=== PATIENT | female | born 1945 | race Caucasian/White ===

== ENCOUNTER 2018-06-14 08:52 | Inpatient (IN) ==
--- NOTE | 2018-05-27 15:08 | PAT Medication Instructions ---
Medication Instructions Date of Service May 27, 2018 Home Medications allopurinol [Zyloprim] 100 mg PO QAM aspirin [Aspir-81] 81 mg PO QAM hydrochlorothiazide 25 mg PO QAM levothyroxine 175 mcg PO QAM lisinopril 2.5 mg PO QAM multivitamin 1 cap PO QAM nifedipine 90 mg PO QAM omega 2-rov-pvf-fish oil [Fish Oil] 1 cap PO QAM ranitidine HCl 150 mg PO QAM STOP taking 2 weeks before surgery (or as soon as possible if surgery is within 2 weeks) omega 5-gkv-dcx-fish oil [Fish Oil] 1 cap PO QAM DO NOT take the morning of surgery hydrochlorothiazide 25 mg PO QAM lisinopril 2.5 mg PO QAM multivitamin 1 cap PO QAM ranitidine HCl 150 mg PO QAM Take morning of surgery With a small sip of water, OTHERWISE NOTHING TO EAT OR DRINK AFTER MIDNIGHT: allopurinol [Zyloprim] 100 mg PO QAM aspirin [Aspir-81] 81 mg PO QAM levothyroxine 175 mcg PO QAM nifedipine 90 mg PO QAM Other Notes If you have any questions please call us at [phone] or [phone] or [phone] or [phone]
--- NOTE | 2018-05-28 11:23 | Anesthesiology Consultation ---
Date of Service May 28, 2018 Assessment & Plan (1) Encounter for pre-operative examination: Chart Review Chart Review: Acceptable Risk for Surgery and Patient seen in Pre Admission Testing Teaching & Discussion Pre-Anesthesia Teaching/Discussion Notes: Instructed NPO after midnight before surgery,except medications with 15 cc of water. Medication instructions provided according to the PAT guidelines. History Surgery Operation Date: 06/14/18 11:05 Proposed Procedures p L4-L5 Decompression and Fusion; L2-L3 Left Discectomy, Possible Coflex - Jose Luis Tello DO Height/Weight Height: 5 ft 4 in Weight: 92.3 kg Allergies Allergy/AdvReac Type Severity Reaction Status Date / Time No Known Allergies Allergy Verified 05/22/18 09:09 Medications Home Medications Medication Instructions Recorded Confirmed Last Taken allopurinol [Zyloprim] 100 mg PO QAM 05/22/18 05/22/18 Unknown aspirin [Aspir-81] 81 mg PO QAM 05/22/18 05/22/18 Unknown hydrochlorothiazide 25 mg PO QAM 05/22/18 05/22/18 Unknown levothyroxine 175 mcg PO QAM 05/22/18 05/22/18 Unknown lisinopril 2.5 mg PO QAM 05/22/18 05/22/18 Unknown multivitamin 1 cap PO QAM 05/22/18 05/22/18 Unknown nifedipine 90 mg PO QAM 05/22/18 05/22/18 Unknown omega 5-atn-kuy-fish oil [Fish Oil] 1 cap PO QAM 05/22/18 05/22/18 Unknown ranitidine HCl 150 mg PO QAM 05/22/18 05/22/18 Unknown Past Medical History Medical History Aortic valve sclerosis Chronic back pain LLE RADICULOPATHY/NEUROPATHY Degenerative disc disease GERD (gastroesophageal reflux disease) CONTROLLED Hypertension Hypothyroidism Obesity Past Surgical History Surgical History History of bilateral tubal ligation History of colonoscopy History of gastric bypass 2006 History of oral surgery Past Anesthesia History No Hx of Anesthesia Complications and No Family Hx of Anesthesia Complications Social History Smoking Status: Current every day smoker tobacco type: cigarettes Smoking cigarettes per day: <1/2 PPD X 30 YEARS Do You Dip or Chew Tobacco: No Hx Alcohol Use: No Alcohol Intake Frequency Comment: 0 Hx Substance Use: No substance use type: does not use Exercise / Class Metabolic Activity III < 4 Walking/Shop/Light housework Review of Systems Patient denies chest pain, shortness of breath, cough, wheezing, palpitations. Physical Exam Vital Signs VITALS BP 125/84 P 83 TEMP 98.0 SP02 95%RA RESP 20 PHYSICAL Full neck and c-spine range of motion. Full TMJ range of motion. TMD 2.5 finger breaths Mallampati Score 3 Dentition: full dentures upper/lower; edentulous Lungs: clear throughout to auscultation Cardiac: regular rate and rhythm, III/ systolic murmur Spine: normal Carotid arteries: negative bruit Extremities: no edema Testing Electrocardiogram Date: 05/28/18 NSR at 76bpm. NS STA. Chest X-Ray Date: 05/28/18 Findings: + NAD Echocardiogram Date: 10/06/16 LVEF 65%. No RWMA. AV sclerosis otherwise no significant valvular disease (ECHO done for murmur evaluation; per ECHO report: "heart murmur may be due to aortic valve sclerosis") Laboratory Results 05/28/18 11:41 Blood Type A Positive 05/28/18 11:41 Antibody Screen NEGATIVE 05/28/18 11:41 PT 10.0 Seconds (9.0-12.0) 05/28/18 11:41 INR 1.0 (0.9-1.1) 05/28/18 11:41 APTT 29.6 Seconds (21.0-31.0) 05/28/18 11:41 Urine Color Dark Yellow 05/28/18 Unknown Urine Appearance Clear (Clear) 05/28/18 Unknown Urine pH 5.0 (4.5-7.5) 05/28/18 Unknown Ur Specific [place] 1.032 (1.000-1.030) H 05/28/18 Unknown Urine Protein Negative (Negative) 05/28/18 Unknown Urine Glucose (UA) Negative (Negative) 05/28/18 Unknown Urine Ketones Trace (Negative) H 05/28/18 Unknown Urine Nitrite Positive (Negative) H 05/28/18 Unknown Ur Leukocyte Esterase Negative (Negative) 05/28/18 Unknown Urine WBC (Auto) 5-10 /hpf (0-5) H 05/28/18 Unknown Urine RBC (Auto) 0-4 /hpf (0-4) 05/28/18 Unknown U Hyaline Cast (Auto) 0 /lpf (0-5) 05/28/18 Unknown U Epithel Cells (Auto) >30 /lpf (0-5) H 05/28/18 Unknown Urine Bacteria (Auto) 1+ (Negative) H 05/28/18 Unknown Surgeon made aware of positive UA/elevated WBC 05/10/18 SODIUM 142 POTASSIUM 4.1 CHLORIDE 102 CO2 28 BUN 14 CREATININE 0.6 GLUCOSE 118
--- NOTE | 2018-05-28 12:05 | XRay Report ---
XR chest Pre-admission PA/Lat CLINICAL HISTORY: pat preoperative evaluation COMPARISON STUDY: No previous studies for comparison. FINDINGS: The bones soft tissues and hemidiaphragms are normal. The cardiomediastinal silhouette is n ormal. The lungs are clear. The pulmonary vasculature is normal. IMPRESSION: Negative chest. The above report was generated using voice recognition software. It may contain grammatical, syntax or spelling errors. Electronically signed by: Williams Menon M.D. 05/28/2018 12:04 PM
[2018-05-28 12:47] LABS: Basophils # (auto) 0.13 K/uL (0-0.2); Eosinophils # (auto) 0.24 K/uL (0-0.5); Eosinophils % (auto) 1.9 %; Hematocrit (blood only) 43.3 % (37-47); Hemoglobin 14.9 g/dL (12.0-16.0); Immature Granulocytes # (auto) 0.04 K/uL (0.00-0.02); Immature Granulocytes % (auto) 0.3 %; Lymphocytes # (auto) 2.97 K/uL (1.2-3.4); Lymphocytes % (auto) 23.9 %; Mean Corpuscular Hgb Conc 34.4 g/dL (32-36); Mean Corpuscular Volume 89.8 fL (80-100); Mean Platelet Volume 9.5 fL (7.4-10.4); Neutrophils # (auto) 8.05 K/uL (1.4-6.5); Neutrophils % (auto) 64.9 %; Platelet Count 415 K/uL (130-400); RDW Coefficient of Variation 13.6 % (11.5-14.5); RDW Standard Deviation 44.6 fL (36.4-46.3); Red Blood Count 4.82 M/uL (4.2-5.4); White Blood Count 12.43 K/uL (4.8-10.8)
[2018-05-28 13:05] LABS: Partial Thromboplastin Ratio 1.1; Partial Thromboplastin Time 29.6 Seconds (21.0-31.0)
[2018-05-28 13:10] LABS: Appearance Urine Clear (Clear); Bacteria Urine Automated 1+ (Negative); Blood Urine Negative (Negative); Cast Urine Automated 0 /lpf (0-5); Color Urine Dark Yellow; Epithelial Cell Urine Auto >30 /lpf (0-5); Glucose Urine UA Negative (Negative); Ketones Urine Trace (Negative); Leukocyte Esterase Urine Negative (Negative); Nitrite Urine Positive (Negative); Protein Urine Negative (Negative); RBC Urine Automated 0-4 /hpf (0-4); Specific Gravity Urine 1.032 (1.000-1.030); Urobilinogen Urine Negative (Negative)
[2018-05-28 13:52] LABS: Bilirubin Urine Negative (Negative); Ictotest Urine Negative (Negative)
[2018-05-28 14:00] LABS: Calcium Oxalate Crystals Urine Present (None Prsent)
[~2018-06-14 08:52] MED LIST: ACETAMINOPHEN 500 MG TAB PO SCH; CEFAZOLIN 2000MG 2,000 MG/15 ML SYR IV SCH; CeleBREX 200 MG CAP PO SCH; DEXAMETHASONE SOD INJ 4 MG/ML VIAL ONE; GABAPENTIN 300 MG PO SCH; GLYCOPYRROLATE 0.2 MG/ML VIAL ONE; HYDROmorphone INJ 2 MG/ML SYR/VIAL ONE; LIDOCAINE HCL 2% 2 ML VIAL/AMP(20MG/ML) INFIL ONE; LR 15ML/HR IV SCH; MIDAZOLAM HCL 1 MG/ML 2ML VIAL ONE; NEOSTIGMINE METHYLSULFATE 1 MG/ML 10ML VIAL ONE; ONDANSETRON INJ 2 MG/ML 2 ML VIAL ONE; PROPOFOL IV EMULSION 10 MG/ML 20 ML VIAL IV ONE; ROCURONIUM BROMIDE 10 MG/ML 5 ML VIAL ONE; fentaNYL citrate 100 MCG/2 ML VIAL ONE
--- NOTE | 2018-06-14 10:27 | History & Physical Bridge Note ---
Date of Service June 14, 2018 History & Physical Bridge Note I have examined the patient, reviewed the History & Physical and in the interval since the performance of the History & Physical I have noted the following changes of clinical significance: no changes noted
--- NOTE | 2018-06-14 10:28 | History & Physical Report ---
Date of Service June 14, 2018 Assessment & Plan (1) Neurogenic claudication due to lumbar spinal stenosis: L4-5 decompression and fusion L2-3 discectomy with possible Coflex Present on Admission?: Yes History of Present Illness Chief Complaint: Back and leg pain Primary Care Provider: Adolfo Tamez This is a 73-year-old female that presents with chronic persistent back pain. After failing extensive course of nonoperative care she is here for surgical intervention. Allergies Allergy/AdvReac Type Severity Reaction Status Date / Time No Known Allergies Allergy Verified 06/14/18 09:17 Home Medications Home Medications Medication Instructions Recorded Confirmed Type aspirin [Aspir-81] 81 mg PO QAM 05/22/18 06/14/18 History hydrochlorothiazide 25 mg PO QAM 05/22/18 06/14/18 History levothyroxine 175 mcg PO QAM 05/22/18 06/14/18 History lisinopril 2.5 mg PO QAM 05/22/18 06/14/18 History multivitamin 1 cap PO QAM 05/22/18 06/14/18 History nifedipine 90 mg PO QAM 05/22/18 06/14/18 History omega 7-pdf-olc-fish oil [Fish Oil] 1 cap PO QAM 05/22/18 06/14/18 History ranitidine HCl 150 mg PO QAM 05/22/18 06/14/18 History Past Med/Surg History Medical History Aortic valve sclerosis Chronic back pain LLE RADICULOPATHY/NEUROPATHY Degenerative disc disease GERD (gastroesophageal reflux disease) CONTROLLED Hypertension Hypothyroidism Obesity Surgical History History of bilateral tubal ligation History of colonoscopy History of gastric bypass 2007 History of oral surgery Social History Preferred Language: [place] Communication Ability: Effective Bead Picker Required: No Beliefs That Will Affect Care: None Current Living Situation: Family Other Information That Helps Us Care for You: No Feels Safe at Home: Yes Safety Concerns: Feels Safe At This Time Smoking Status: Current every day smoker Hx Alcohol Use: No Hx Substance Use: No Physical Exam Vital Signs (Past 24 Hours): Last Vital Signs Temp 36.9 C 06/14/18 09:35 Pulse 74 06/14/18 09:35 Resp 20 06/14/18 09:35 BP 151/85 H 06/14/18 09:35 Pulse Ox 96 06/14/18 09:35 Results & Data Medications Administered Acetaminophen (Tylenol) 1,000 mg PO PREOP CRISTINA Stop: 06/14/18 18:00 Last Admin: 06/14/18 09:52 Dose: 1,000 mg Documented by: [id number] Celecoxib (Celebrex) 200 mg PO PREOP CRISTINA Stop: 06/14/18 18:00 Last Admin: 06/14/18 09:52 Dose: 200 mg Documented by: [id number] Gabapentin (Neurontin) 300 mg PO PREOP CRISTINA Stop: 06/14/18 18:00 Last Admin: 06/14/18 09:52 Dose: 300 mg Documented by: [id number] Lactated Ringer's (Lr) 1,000 mls @ 15 mls/hr IV .Q24H [facility] Stop: 06/15/18 05:59 Last Admin: 06/14/18 09:37 Dose: 15 mls/hr Documented by: [id number]
[2018-06-14] MEDS ORDERED: ePHEDrine sulfate 50 MG/ML AMP IV PRN (10:35)
[2018-06-14] MEDS ORDERED: fentaNYL citrate 100 MCG/2 ML VIAL IV PRN (10:35)
[2018-06-14] MEDS ORDERED: ATROPINE SULFATE 0.1 MG/ML 10ML SYR IV PRN (10:35)
[2018-06-14] MEDS ORDERED: ONDANSETRON INJ 2 MG/ML 2 ML VIAL IV PRN ×2 (10:35→15:15)
[2018-06-14] MEDS ORDERED: HYDROmorphone INJ 1 MG/ML SYRINGE IV PRN ×2 (10:35→15:15)
[2018-06-14] MEDS ORDERED: ALBUT/IPRATROP 3MG/0.5MG NEB 3 ML VIAL INH PRN (10:44)
[2018-06-14] MEDS ORDERED: BUPIVACAINE/EPINEPHRINE 0.5% MPF 1:200,000 30 ML VIAL ONE (10:44)
[2018-06-14] MEDS ORDERED: BACITRACIN INJ 50,000 UNIT VIAL ONE (10:44)
[2018-06-14] MEDS ORDERED: ALBUT/IPRATROP 3MG/0.5MG NEB 3 ML VIAL NEB STA (10:44)
[2018-06-14] MEDS ORDERED: fentaNYL citrate 100 MCG/2 ML VIAL ONE ×3 (11:27→13:01)
[2018-06-14] MEDS ORDERED: FLOSEAL HEMOSTATIC MATRIX 10ML TOP ONE (11:37)
[2018-06-14] MEDS ORDERED: ePHEDrine sulfate 50 MG/ML SYR ONE (13:02)
[2018-06-14] MEDS ORDERED: KETOROLAC 30 MG/ML VIAL ONE (13:02)
[2018-06-14] MEDS ORDERED: ALBUTEROL HFA INHALER 8.5 GM ONE (13:02)
[2018-06-14] MEDS ORDERED: PHENYLEPHRINE 100MCG/ML 5ML SYR ONE (13:02)
[2018-06-14] MEDS ORDERED: HYDROmorphone INJ 2 MG/ML SYR/VIAL ONE (13:02)
--- NOTE | 2018-06-14 13:06 | Operative Report ---
Post Operative Report Pre & Post Diagnosis Operation Date: 06/14/18 11:05 Pre-Op Diagnosis: Lumbar spinal stenosis with neurogenic claudication and herniated was pulposis L2-3 Post-Op Diagnosis: Same Procedure Operation Date: 06/14/18 11:05 Actual Procedures #1 lumbar decompression medial facetectomies foraminotomies L2-3 L3-4 L4-5. #2 posterior spinal fusion L2-3 L3-4 L4-5 per #3 placement posterior instrumentation L4-5 per #4 interbody fusion L4-5 per #5 placement of titanium 10 x 22 mm cage L4-5 #6 placement of local autograft in the posterior gutters per #7 placement infuse collagen sponge combined with master graft in the posterior lateral gutters and ostial amp and interbody space. Surgeon Jose Luis Tello, Talend Etl Developer Jose Juan Madison Estimated Blood Loss 200 Findings Consistent with Post-Op Diagnosis Specimens None Description of Procedure Patient was met with preoperatively case discussed all questions addressed. After informed consent obtained patient was taken to the operative suite underwent intubation and placed in a prone position on the Zain table on top of the Brayan frame. All bony prominences padded eyes inspected to ensure no external pressure placed upon. This point the lumbar spine is prepped and draped in a sterile fashion. Sharp dissection with the assistance pericardial form down to and exposing the lamina of L2 and L3-L4 and the transverse processes of L4-5 bilaterally. I then proceeded with an complete laminectomy of L4 partial laminectomy L3 including bilateral medial facetectomies foraminoto mies to address severe stenosis. Pedicle screws were then placed in L4-L5 bilaterally with assistance of fluoroscopy the purposes kenia placed by way of a transforaminal approach and left complete discectomy was performed in plate coated to subcortical bleeding bone and a 10 x 22 mm titanium cage filled some and tapped in position. Then proceeded to 3 level in performed a midline decompression however to adequately decompress the exiting to an traversing III nerve root I performed a medial facetectomy and foraminotomies taking significant portion of the facet joint rendering it unstable. Subsequent elected to expose the transverse processes of a 2 and 3 and extend the in situ fusion to L2-3 L3-4 bilaterally. I did also perform small discectomy to 3 and removing the herniated fragment on the left. After this complete infuse collagen sponge and cement were placed in the posterior gutters L2-L5 including local autograft. 15 round JACKIE drain inserted. Incision was then closed with 1 Vicryl in the fascia 2-0 Vicryl subcutaneously Monocryl for final skin closure. Steri-Strip sterile dressings placed. Patient will continue to PACU stable condition. Please note my coworker present at the entire procedure involved in patient positioning complex portions of the surgery and final skin closure. I attest to the content of the Intraoperative Record and any orders documented therein. Any exceptions are noted below.
--- NOTE | 2018-06-14 13:46 | Fluoroscopy Report ---
INTRAOPERATIVE RADIOGRAPHS CLINICAL HISTORY: L4-L5 spinal fusion. Fluoroscopy time: 22 seconds. FINDINGS: 2 spot fluoroscopic views of the lumbar spine are presented. There has been discectomy at L 4-L5 with laminectomy and posterior fusion at this level. Interpedicular screws are seen at both leve ls. The orthopedic hardware appears intact. IMPRESSION: Intraoperative images from L4 -L5 spinal fusion as above. Electronically signed by: Chente Moss M.D. 06/14/2018 1:44 PM
--- NOTE | 2018-06-14 14:16 | Anesthesiology Progress Note ---
Date of Service June 14, 2018 Anesthesia Post Procedure Vital Signs Vital Signs: Temp Pulse Pulse Pulse Resp BP BP 06/14/18 14:03 70 17 06/14/18 14:01 69 22 132/62 06/14/18 14:00 78 21 06/14/18 13:56 66 21 131/66 06/14/18 13:55 65 20 06/14/18 13:51 68 24 130/71 06/14/18 13:50 64 20 06/14/18 13:47 64 18 06/14/18 13:46 69 20 118/72 06/14/18 13:45 77 18 06/14/18 13:41 75 17 122/63 06/14/18 13:40 71 20 06/14/18 13:36 77 24 130/68 06/14/18 13:35 77 16 06/14/18 13:31 82 17 137/69 06/14/18 13:30 76 15 06/14/18 13:28 36.3 C L 76 76 20 132/66 132/66 06/14/18 10:53 79 16 06/14/18 09:35 36.9 C 74 20 151/85 H Pulse Ox 06/14/18 14:03 99 06/14/18 14:01 98 06/14/18 14:00 98 06/14/18 13:56 96 06/14/18 13:55 95 06/14/18 13:51 98 06/14/18 13:50 98 06/14/18 13:47 99 06/14/18 13:46 100 06/14/18 13:45 100 06/14/18 13:41 99 06/14/18 13:40 98 06/14/18 13:36 98 06/14/18 13:35 98 06/14/18 13:31 95 06/14/18 13:30 95 06/14/18 13:28 94 06/14/18 10:53 95 06/14/18 09:35 96 Pain Intensity Lower Back: Pain Intensity: 5 Back: Pain Intensity: 0 Notes Mental Status: alert / awake / arousable and participated in evaluation Patient Amnestic to Procedure: Yes Nausea / Vomiting: adequately controlled Pain: adequately controlled Airway Patency, RR, SpO2: stable & adequate BP & HR: stable & adequate Hydration State: stable & adequate Anesthetic Complications: no major complications apparent and Pt Satisfied with anesthetic care Notes: Patient was wheezing prior to going to the OR. Given duoneb with mild improvement. Albuterol given via ETT intraop for continued wheezing. Treated again in PACU with duoneb for wheezing with mild improvement, but continued audible wheezing even after treatment. Suspect this is chronic for the patient. Vital signs are stable and oxygen saturation consistently 96 to 100% on 4 lpm NC. Ok to discharge to the floor. Medicine consult in place to evaluate whether patient needs longitudinal optimization of suspected COPD due to history of smoking.
[2018-06-14] MEDS ORDERED: TRAMADOL HCL 50 MG TABLET PO PRN (15:15)
[2018-06-14] MEDS ORDERED: ALUMINUM/MAGNESIUM SUSP 30 ML UDC PO PRN (15:15)
[2018-06-14] MEDS ORDERED: ACETAMINOPHEN 500 MG TAB PO PRN (15:15)
[2018-06-14] MEDS ORDERED: ONDANSETRON 4 MG TAB PO PRN (15:15)
[2018-06-14] MEDS ORDERED: FAMOTIDINE 20 MG TAB PO PRN (15:15)
[2018-06-14] MEDS ORDERED: DO NOT ADMINISTER PNEUMOCOCCAL VACCINE PRN (15:15)
[2018-06-14] MEDS ORDERED: SOD PHOSPHATE/SOD BIPHOSPHATE ENEMA 132 ML BTL PR PRN (15:15)
[2018-06-14] MEDS ORDERED: METOCLOPRAMIDE HCL INJ 5 MG/ML 2 ML VIAL IV PRN (15:15)
[2018-06-14] MEDS ORDERED: PROMETHAZINE HCL 12.5 MG in SODIUM CHLORIDE 0.9% 50 ML IV PRN (15:15)
[2018-06-14] MEDS ORDERED: MAGNESIUM HYDROXIDE SUSP 30 ML UDC PO PRN (15:15)
[2018-06-14] MEDS ORDERED: BISACODYL 10 MG SUPP PR PRN (15:15)
[2018-06-14] MEDS ORDERED: LORazepam 0.5 MG/1 ML VIAL IV PRN (15:15)
[2018-06-14] MEDS ORDERED: ACETAMINOPHEN 1,000 MG/100 ML VIAL IV PRN (15:15)
[2018-06-14] MEDS ORDERED: DO NOT ADMINISTER FLU VACCINE PRN (15:15)
[2018-06-14] MEDS ORDERED: LORazepam 0.5 MG TAB PO PRN (15:15)
[2018-06-14] MEDS ORDERED: NICOTINE 14 MG/24 HR PATCH TD PRN (18:06)
--- NOTE | 2018-06-14 18:06 | Hospitalist Consultation ---
Date of Consultation June 14, 2018 Assessment & Plan (1) Neurogenic claudication due to lumbar spinal stenosis: - POD#0 L4-5 decompression fusion, L2-[address] Tello - activity and wound care orders as per ortho - pain control with bowel regimen - PT/OT - monitor H/H for acute blood loss anemia and transfuse blood products PRN - EBL 200 cc (2) Hypertension: -BP controlled, continue hydrochlorothiazide and lisinopril (3) Hypothyroidism: -Continue levothyroxine (4) Dyslipidemia: -Continue statin (5) Tobacco use: -Patient counseled regarding tobacco cessation -Nicotine patch ordered (6) DVT prophylaxis: -Teds/SCDs as per spine ortho Thank you for this consultation. We will follow the patient with you during their hospital stay. You can reach a [facility] via pager @ [phone]. Supervising Physician Co-Signing Physician Notes HISTORY: Record reviewed. Patient interviewed and examined. Care coordinated with Corinna Grayson PA-C. Please refer to her documentation for patient's history. Doing well postoperatively. No chest pain, cough, SOB, nausea, vomiting. Pain well-controlled. EXAM: General- no distress Lungs- clear to auscultation; no respiratory distress Cardiovascular- RRR; II/ sys murmur at base; no gallop; no JVD; no pretibial edema Abdomen- + bowel sounds, soft, nontender Extremities- no cyanosis; no calf tenderness Neuro- alert, oriented Skin- warm & dry ASSESSMENT AND PLAN: Doing well postoperatively. Continue usual BP meds. VTE prophylaxis per Ortho protocol. Please refer to JONATHAN Salinas's documentation for discussion of other issues. History of Present Illness Reason for Consultation: Postop medical management Requesting Physician: Dr. Tello Attending Physician: Dr. Felipe History of Present Illness 73-year-old female who is status post L4-L5 decompression and fusion, L2-L3 discectomy today by Dr. Tello. Postoperatively, the patient is doing well. She is currently reporting minimal pain. She denies any numbness or tingling to her lower extremities. No chest pain or shortness of breath. She denies lightheadedness and dizziness. No abdominal pain or nausea. Mccarthy catheter is in place draining clear yellow urine. Allergies Allergy/AdvReac Type Severity Reaction Status Date / Time No Known Allergies Allergy Verified 06/14/18 09:17 Home Medications Home Medications Medication Instructions Recorded Confirmed Type aspirin [Aspir-81] 81 mg PO QAM 05/22/18 06/14/18 History hydrochlorothiazide 25 mg PO QAM 05/22/18 06/14/18 History levothyroxine 175 mcg PO QAM 05/22/18 06/14/18 History lisinopril 2.5 mg PO QAM 05/22/18 06/14/18 History multivitamin 1 cap PO QAM 05/22/18 06/14/18 History nifedipine 90 mg PO QAM 05/22/18 06/14/18 History omega 9-zqy-hhk-fish oil [Fish Oil] 1 cap PO QAM 05/22/18 06/14/18 History ranitidine HCl 150 mg PO QAM 05/22/18 06/14/18 History atorvastatin [Lipitor] 10 mg PO DAILY 06/14/18 06/14/18 History calcium carbonate-vitamin D3 1 cap PO DAILY 06/14/18 06/14/18 History [Calcium 600 + D(3)] citalopram 10 mg PO DAILY 06/14/18 06/14/18 History cyanocobalamin (vitamin B-12) 2,500 mcg PO SA 06/14/18 06/14/18 History oxycodone 5 mg PO Q4H PRN #30 tab 06/15/18 Rx tramadol 50 mg PO Q4H PRN #30 tab 06/15/18 Rx Patient History Medical History Dyslipidemia (Chronic) Tobacco use (Chronic) Hypertension (Chronic) Hypothyroidism (Chronic) Neurogenic claudication due to lumbar spinal stenosis (Chronic) GERD (gastroesophageal reflux disease) (Chronic) CONTROLLED Surgical History History of cataract surgery (Chronic) H/O tubal ligation (Chronic) Hx of gastric bypass (Chronic) Family History Mother Diabetes Hypertension Heart disease Social History Communication Ability: Effective Beliefs That Will Affect Care: None Current Living Situation: Family Other Information That Helps Us Care for You: No Feels Safe at Home: Yes Safety Concerns: Feels Safe At This Time Smoking Status: Current every day smoker Hx Alcohol Use: No Hx Substance Use: No Review of Systems ROS per HPI, all other systems reviewed and negative Physical Exam Vital Signs (Past 24 Hours): Last Vital Signs Temp 36.6 C 06/14/18 17:35 Pulse 78 06/14/18 17:35 Resp 18 06/14/18 17:35 BP 117/68 06/14/18 17:35 Pulse Ox 96 06/14/18 17:35 Constitutional: WD/WN, vitals as above Eyes: PERRL, conjunctivae normal, anicteric sclerae ENMT: external ear and nose normal, oropharynx normal Respiratory: normal respiratory effort, lungs clear to auscultation Cardiovascular: Rate/Rhythm: regular rate and regular rhythm Vessels: normal peripheral pulses Extremities: no edema Gastrointestinal (Abdomen): normal bowel sounds, soft, nontender, no hepatosplenomegaly Musculoskeletal: no cyanosis or clubbing, extremities motor strength 5/5 S/P back surgery, pedal pushes and pulls strong bilaterally Skin: no rashes, warm and dry Neurologic: PERRL, EOMI, accommodation nl, no face palsy, no dysarthria Psychiatric: A+Ox3, euthymic affect
[2018-06-14] MEDS: CEFAZOLIN 2000MG 2,000 MG/15 ML SYR IV SCH (18:27)
[2018-06-14] MEDS: SODIUM CHLORIDE 0.9% 1000ML 1,000 ML IV SCH (20:05)
[2018-06-15] MEDS: SODIUM CHLORIDE 0.9% 1000ML 1,000 ML IV SCH ×2 (02:30→06:22)
[2018-06-15] MEDS: CEFAZOLIN 2000MG 2,000 MG/15 ML SYR IV SCH (02:33)
[2018-06-15] MEDS: LEVOTHYROXINE SODIUM 175 MCG TABLET PO SCH (05:53)
[2018-06-15 06:57] LABS: Basophils # (auto) 0.01 K/uL (0-0.2); Basophils % (auto) 0.1 %; Eosinophils # (auto) 0.01 K/uL (0-0.5); Eosinophils % (auto) 0.1 %; Hematocrit (blood only) 33.2 % (37-47); Hemoglobin 11.1 g/dL (12.0-16.0); Immature Granulocytes # (auto) 0.05 K/uL (0.00-0.02); Immature Granulocytes % (auto) 0.3 %; Lymphocytes # (auto) 2.29 K/uL (1.2-3.4); Lymphocytes % (auto) 14.1 %; Mean Corpuscular Hgb Conc 33.4 g/dL (32-36); Mean Corpuscular Volume 89.2 fL (80-100); Mean Platelet Volume 9.1 fL (7.4-10.4); Monocytes # (auto) 1.46 K/uL (0.11-0.59); Neutrophils # (auto) 12.41 K/uL (1.4-6.5); Neutrophils % (auto) 76.4 %; Platelet Count 322 K/uL (130-400); RDW Coefficient of Variation 13.9 % (11.5-14.5); RDW Standard Deviation 45.6 fL (36.4-46.3); Red Blood Count 3.72 M/uL (4.2-5.4); White Blood Count 16.23 K/uL (4.8-10.8)
[2018-06-15 07:36] LABS: BUN Creatinine Ratio 19.5 (10-20); Calcium 7.9 mg/dl (8.5-10.1); Est GFR (African American) 104.6; Est GFR (Non-African American) 90.2; Potassium 3.7 mmol/L (3.5-5.1)
[2018-06-15] MEDS: ASPIRIN 81 MG ECTAB PO SCH (08:42)
[2018-06-15] MEDS: hydroCHLOROthiazide 25 MG TAB PO SCH (08:42)
[2018-06-15] MEDS: OMEGA-3 (PURIFIED FISH OIL) 1 GM CAP PO SCH (08:42)
[2018-06-15] MEDS: CITALOPRAM 20 MG TAB PO SCH (08:43)
[2018-06-15] MEDS: LISINOPRIL 2.5 MG TAB PO SCH (08:43)
[2018-06-15] MEDS: NIFEdipine EXTENDED REL 30 MG TABCR PO SCH (08:43)
[2018-06-15] MEDS: MULTIVITAMIN TAB PO SCH (08:43)
[2018-06-15] MEDS: CALCIUM 600MG + VIT D 400 IU TAB PO SCH (08:44)
[2018-06-15] MEDS: ATORVASTATIN 10 MG TAB PO SCH (08:44)
[2018-06-15] MEDS: OXYCODONE HCL IR 5 MG TAB (IMMEDIATE RELEASE) PO PRN ×3 (09:55→23:22)
--- NOTE | 2018-06-15 10:21 | Orthopedic Progress Note ---
Date of Service June 15, 2018 Assessment & Plan (1) Neurogenic claudication due to lumbar spinal stenosis: Patient will initiate physical therapy today we will monitor JACKIE output throughout the weekend anticipate discharge home Sunday. Present on Admission?: Yes Subjective Back pain is controlled left leg symptoms markedly improved. Physical Exam Vital Signs (Past 24 Hours): Last Vital Signs Temp 36.8 C 06/15/18 07:22 Pulse 88 06/15/18 07:22 Resp 16 06/15/18 07:22 BP 114/66 06/15/18 07:22 Pulse Ox 94 06/15/18 07:22 Physical Exam: On exam she appears comfortable. She is good strength testing the lower extremities.
--- NOTE | 2018-06-15 13:28 | Anesthesiology Progress Note ---
Date of Service June 15, 2018 Anesthesia Post Procedure Vital Signs Vital Signs: Temp Pulse Pulse Pulse Pulse Resp BP 06/15/18 10:50 36.9 C 74 16 06/15/18 07:22 36.8 C 88 16 06/15/18 04:03 36.7 C 69 14 06/15/18 03:48 36.9 C 78 14 06/14/18 23:19 36.6 C 83 14 06/14/18 21:08 36.7 C 78 18 06/14/18 17:35 36.6 C 78 18 06/14/18 16:35 36.5 C 87 18 06/14/18 15:44 36.3 C L 73 18 06/14/18 15:09 36.5 C 73 18 06/14/18 14:35 36.7 C 73 20 06/14/18 14:26 67 24 120/60 06/14/18 14:25 68 16 06/14/18 14:21 69 21 127/60 06/14/18 14:20 68 26 H 06/14/18 14:16 67 20 130/61 06/14/18 14:15 67 19 06/14/18 14:11 72 22 122/63 06/14/18 14:10 69 19 06/14/18 14:06 66 20 118/68 06/14/18 14:05 67 19 06/14/18 14:03 70 17 06/14/18 14:02 68 21 06/14/18 14:01 69 22 132/62 06/14/18 14:00 78 21 06/14/18 13:56 66 21 131/66 06/14/18 13:55 65 20 06/14/18 13:51 68 24 130/71 06/14/18 13:50 64 20 06/14/18 13:47 64 18 06/14/18 13:46 69 20 118/72 06/14/18 13:45 77 18 06/14/18 13:41 75 17 122/63 06/14/18 13:40 71 20 06/14/18 13:36 77 24 130/68 06/14/18 13:35 77 16 06/14/18 13:31 82 17 137/69 06/14/18 13:30 76 15 06/14/18 13:28 36.3 C L 76 76 20 132/66 BP BP Pulse Ox 06/15/18 10:50 128/70 93 06/15/18 07:22 114/66 94 06/15/18 04:03 144/76 H 97 06/15/18 03:48 125/76 90 06/14/18 23:19 112/66 98 06/14/18 21:08 110/65 96 06/14/18 17:35 117/68 96 06/14/18 16:35 117/66 97 06/14/18 15:44 110/66 99 06/14/18 15:09 109/66 98 06/14/18 14:35 112/64 96 06/14/18 14:26 98 06/14/18 14:25 95 06/14/18 14:21 98 06/14/18 14:20 99 06/14/18 14:16 100 06/14/18 14:15 100 06/14/18 14:11 100 06/14/18 14:10 100 06/14/18 14:06 100 06/14/18 14:05 99 06/14/18 14:03 99 06/14/18 14:02 98 06/14/18 14:01 98 06/14/18 14:00 98 06/14/18 13:56 96 06/14/18 13:55 95 06/14/18 13:51 98 06/14/18 13:50 98 06/14/18 13:47 99 06/14/18 13:46 100 06/14/18 13:45 100 06/14/18 13:41 99 06/14/18 13:40 98 06/14/18 13:36 98 06/14/18 13:35 98 06/14/18 13:31 95 06/14/18 13:30 95 06/14/18 13:28 132/66 94 Pain Intensity Lower Back: Pain Intensity: 5 Back: Pain Intensity: 0 Notes Mental Status: alert / awake / arousable and participated in evaluation Patient Amnestic to Procedure: Yes Nausea / Vomiting: adequately controlled Pain: adequately controlled Airway Patency, RR, SpO2: stable & adequate BP & HR: stable & adequate Hydration State: stable & adequate Anesthetic Complications: no major complications apparent and Pt Satisfied with anesthetic care
--- NOTE | 2018-06-15 20:34 | Hospitalist Progress Note ---
Date of Service June 15, 2018 Assessment & Plan (1) Status post lumbar spine operative procedure for decompression of spinal cord: POD # 1. Doing well. (2) Hypertension: Continue lisinopril, nifedipine, HCTZ. (3) Dyslipidemia: Continue atorvastatin. (4) Leukocytosis: WBC 16,230. No fever or signs of infection. Received dexamethasone perioperatively. Follow. (5) DVT prophylaxis: Per Ortho protocol. (6) Encounter for consultation: Thank you for this consultation. We will follow the patient with you during their hospital stay. My cell # is [phone]. You can reach a member of the [facility] Medicine Team 16/10 via pager @ [phone]. Subjective Recheck for medical management. Pt seen in her room around 1140. Doing well postoperatively. No chest pain. No cough, SOB. No nausea, vomiting. Not passing any flatus or stool yet. No urinary symptoms. Pain well-controlled. Participated with PT this morning. Physical Exam Vital Signs (Past 24 Hours): Last Vital Signs Temp 37.1 C 06/15/18 15:14 Pulse 87 06/15/18 15:14 Resp 18 06/15/18 15:14 BP 123/73 06/15/18 15:14 Pulse Ox 90 06/15/18 15:14 Constitutional: no acute distress Respiratory: no respiratory distress Auscultation: lungs clear to auscultation bilaterally Cardiovascular: Rate/Rhythm: regular rate and regular rhythm Heart Sounds: + murmur (II/ sys murmur at base); no gallop and no cardiac rub Vessels: no JVD Extremities: no calf tenderness and no edema Gastrointestinal (Abdomen): normal bowel sounds, soft, nontender, no hepatosplenomegaly Skin: no rashes, warm and dry Psychiatric: Orientation: alert and oriented x 3 Results & Data Laboratory Results Laboratory Results - last 24 hr 06/15/18 06/15/18 06:40 06:40 WBC 16.23 H RBC 3.72 L Hgb 11.1 L Hct 33.2 L MCV 89.2 MCH 29.8 MCHC 33.4 RDW Std Deviation 45.6 RDW Coeff of Connor 13.9 Plt Count 322 MPV 9.1 Immature Gran % (Auto) 0.3 Neut % (Auto) 76.4 Lymph % (Auto) 14.1 [place] % (Auto) 9.0 Eos % (Auto) 0.1 Baso % (Auto) 0.1 Immature Gran # (Auto) 0.05 H Neut # (Auto) 12.41 H Lymph # (Auto) 2.29 [place] # (Auto) 1.46 H Eos # (Auto) 0.01 Baso # (Auto) 0.01 Sodium 143 Potassium 3.7 Chloride 111 H Carbon Dioxide 28 Anion Gap 4.0 BUN 12 Creatinine 0.63 Est Cr Clr Drug Dosing 90.0 Est GFR ( Amer) 104.6 Est GFR (Non-Af Amer) 90.2 BUN/Creatinine Ratio 19.5 Glucose 91 Calcium 7.9 L
[2018-06-15] MEDS: DOCUSATE SODIUM/SENNA 50/8.6MG TAB PO SCH (21:26)
[2018-06-16] MEDS: LEVOTHYROXINE SODIUM 175 MCG TABLET PO SCH (05:30)
[2018-06-16] MEDS: CITALOPRAM 20 MG TAB PO SCH (07:54)
[2018-06-16] MEDS: CALCIUM 600MG + VIT D 400 IU TAB PO SCH (07:54)
[2018-06-16] MEDS: ASPIRIN 81 MG ECTAB PO SCH (07:55)
[2018-06-16] MEDS: ATORVASTATIN 10 MG TAB PO SCH (07:55)
[2018-06-16] MEDS: MULTIVITAMIN TAB PO SCH (07:55)
[2018-06-16] MEDS: OMEGA-3 (PURIFIED FISH OIL) 1 GM CAP PO SCH (07:56)
[2018-06-16] MEDS: LISINOPRIL 2.5 MG TAB PO SCH (07:57)
[2018-06-16] MEDS: hydroCHLOROthiazide 25 MG TAB PO SCH (07:57)
[2018-06-16] MEDS: NIFEdipine EXTENDED REL 30 MG TABCR PO SCH (07:57)
--- NOTE | 2018-06-16 11:07 | Orthopedic Progress Note ---
Date of Service June 16, 2018 Assessment & Plan (1) Status post lumbar spine operative procedure for decompression of spinal cord: At this time we will maintain activity as tolerated. Monitor JACKIE output. Anticipate possible discharge home tomorrow. Present on Admission?: Yes Subjective Patient's back pain is controlled. Left leg symptoms markedly improved. Physical Exam Vital Signs (Past 24 Hours): Last Vital Signs Temp 37.1 C 06/16/18 06:39 Pulse 91 H 06/16/18 07:52 Resp 16 06/16/18 06:39 BP 115/73 06/16/18 07:52 Pulse Ox 95 06/16/18 10:22 Physical Exam: Patient is comfortable. She has good strength testing.
[2018-06-16] MEDS: OXYCODONE HCL IR 5 MG TAB (IMMEDIATE RELEASE) PO PRN ×2 (12:55→20:56)
--- NOTE | 2018-06-16 20:45 | Hospitalist Progress Note ---
Date of Service June 16, 2018 Assessment & Plan (1) Status post lumbar spine operative procedure for decompression of spinal cord: POD # 2. Doing well. (2) Hypertension: Continue lisinopril, nifedipine, HCTZ. (3) Dyslipidemia: Continue atorvastatin. (4) Leukocytosis: WBC 16,230. No fever or signs of infection. Received dexamethasone perioperatively. Recheck CBC tomorrow. (5) DVT prophylaxis: Per Ortho protocol. (6) Encounter for consultation: Thank you for this consultation. We will follow the patient with you during their hospital stay. My cell # is [phone]. You can reach a member of the [facility] Medicine Team 16/10 via pager @ [phone]. Subjective Recheck for medical management. Pt seen in her room around 1140. Friend visiting. Doing well postoperatively. No chest pain. No cough, SOB. No nausea, vomiting. Not passing any flatus or stool yet. No urinary symptoms. Having some postop pain with increasing activity. Physical Exam Vital Signs (Past 24 Hours): Last Vital Signs Temp 37.2 C 06/16/18 15:59 Pulse 93 H 06/16/18 15:59 Resp 16 06/16/18 15:59 BP 114/70 06/16/18 15:59 Pulse Ox 93 06/16/18 15:59 Constitutional: no acute distress Respiratory: no respiratory distress Auscultation: lungs clear to auscultation bilaterally Cardiovascular: Rate/Rhythm: regular rate and regular rhythm Heart Sounds: + murmur (II/ sys murmur at base); no gallop and no cardiac rub Vessels: no JVD Extremities: no calf tenderness and no edema Gastrointestinal (Abdomen): normal bowel sounds, soft, nontender, no hepatosplenomegaly Skin: no rashes, warm and dry Psychiatric: Orientation: alert and oriented x 3
[2018-06-16] MEDS: DOCUSATE SODIUM/SENNA 50/8.6MG TAB PO SCH (20:55)
[2018-06-17 05:49] LABS: Hematocrit (blood only) 35.1 % (37-47); Hemoglobin 11.5 g/dL (12.0-16.0); Mean Corpuscular Hgb Conc 32.8 g/dL (32-36); Mean Corpuscular Volume 90.7 fL (80-100); Mean Platelet Volume 9.2 fL (7.4-10.4); Platelet Count 329 K/uL (130-400); RDW Coefficient of Variation 13.9 % (11.5-14.5); RDW Standard Deviation 45.8 fL (36.4-46.3); Red Blood Count 3.87 M/uL (4.2-5.4); White Blood Count 15.98 K/uL (4.8-10.8)
[2018-06-17] MEDS: LEVOTHYROXINE SODIUM 175 MCG TABLET PO SCH (06:12)
[2018-06-17 06:16] LABS: Calcium 8.1 mg/dl (8.5-10.1); Creatinine Clr Calc Pharmacy 103.1 ml/min; Est GFR (African American) 109.4; Est GFR (Non-African American) 94.4; Potassium 3.5 mmol/L (3.5-5.1)
[2018-06-17] MEDS: OMEGA-3 (PURIFIED FISH OIL) 1 GM CAP PO SCH (08:34)
[2018-06-17] MEDS: hydroCHLOROthiazide 25 MG TAB PO SCH (08:34)
[2018-06-17] MEDS: LISINOPRIL 2.5 MG TAB PO SCH (08:34)
[2018-06-17] MEDS: MULTIVITAMIN TAB PO SCH (08:35)
[2018-06-17] MEDS: NIFEdipine EXTENDED REL 30 MG TABCR PO SCH (08:35)
[2018-06-17] MEDS: CITALOPRAM 20 MG TAB PO SCH (08:35)
[2018-06-17] MEDS: CALCIUM 600MG + VIT D 400 IU TAB PO SCH (08:35)
[2018-06-17] MEDS: ASPIRIN 81 MG ECTAB PO SCH (08:35)
[2018-06-17] MEDS: ATORVASTATIN 10 MG TAB PO SCH (08:35)
--- NOTE | 2018-06-17 09:49 | Discharge Summary ---
Date of Service June 17, 2018 Admission HPI Per Admitting Provider This is a 73-year-old female that presents with chronic persistent back pain. After failing extensive course of nonoperative care she is here for surgical intervention. Principal Diagnosis Lumbar spinal stenosis with neurogenic claudication Discharge Data Allergies Allergy/AdvReac Type Severity Reaction Status Date / Time No Known Allergies Allergy Verified 06/14/18 09:17 Consultations 06/14/18 15:15 Consult Case Management - Discharge Planning Routine Consult Hospitalist Routine Procedures Performed Operation Date: 06/14/18 11:05 Actual Procedures p L4-L5 Decompression and Fusion; L2-L3 Discectomy, Insitu fusion at L2-L3, application of Infuse, application of Osteoamp(Not Applicable) - Jose Luis Tello DO Ordered Studies 06/14/18 11:05 FL fluoroscopy <1hr Routine FL lumbar spine 2-3V Routine Hospital Course (1) Neurogenic claudication due to lumbar spinal stenosis: Patient underwent multilevel lumbar decompression fusion tolerated this well was taken to the orthopedic floor postoperative. Postop day 1 she was up and ambulating nicely leg pain markedly improved. She progressed to postop day #2. JACKIE drain decreasing appropriately. Subsequently discharged home on postop day #3. Discharge orders and instructions can be found in the chart for further review. Total Time Total Time Spent Total Time Spent (In Minutes): Not applicable Discharge Plan Discharge Items Patient Disposition: Home - Self-Care Reason For Visit: Spinal Stenosis, Lumbar Region without Neurogenic Discharge Diagnosis: Lumbar spinal stenosis with neurogenic claudication Discharge Goals: Decrease discomfort Activity: Per 'Additional Instructions' section Non-emergency contact: Primary Care Provider Call non-emergency contact if: you have any medication questions Follow-up/Referrals: Adolfo Tamez M.D. [Primary Care Provider] - Diet: Regular Addtl Provider Instructions: ACTIVITY RECOMMENDATIONS: SELF CARE INSTRUCTIONS AFTER THORACIC/LUMBAR FUSIONS 1. You may walk to your tolerance. It is good exercise for your legs and back. Expect some back and intermittent leg aches and pains. 2. You may perform "counter-top" level activities (make a sandwich, aishwarya with a project, etc.). 3. No bending or lifting of more than 10 pounds or back twisting of any nature (roll like a log when turning in bed). 4. You may ride in a car for 20-30 minutes at a time. No driving until after your first visit with your doctor. 5. Frequent changes of position and restricting sitting to 30 minutes at a time will help limit the amount of back spasms and stiffness you may experience. 6. You may discontinue the use of ambulatory aids (cane, crutches, etc.) once your strength and confidence allow. 7. You may hat finishing materials preparer the shower and let water strike your incision when you arrive home at least once daily. Do not take a tub bath, sit in a hot tub or go into a swimming pool until after your first recheck in the office. SPECIAL CARE INSTRUCTIONS: VERY IMPORTANT TO READ AND REVIEW A. Your surgical incision has been closed with a cosmetic suture under the skin that will dissolve in about 6 weeks. In 14 days, you can use a pair of clean scissors and cut the suture that is left outside of the skin at the ends of your incision. 1. The small skin tapes can be removed 7 days after surgery if they have not fallen off by that point. 2. You may keep the wound open to air as much as possible to promote healing after post-op day number 5 unless told otherwise by your doctor. 3. If you think the wound looks like it is becoming infected (redness or worsening drainage) and/or you are experiencing fever, chill or worsening back pain and muscle spasms, contact the office so that we may evaluate you as soon as possible. B. Complications are uncommon, but please contact us if you have any signs or symptoms of: 1. wound infection (fever higher than 102.5 degrees F, redness, separation of wound, drainage, or increasing pain from the incision) 2. blood clots in legs (pain, swelling, redness and warmth in legs) 3. urinary tract infection (fever higher than 102.5 degrees F, burning upon urination or increased frequency of urination) 4. nerve problems (inability to walk on your toes or heels, numbness, loss of bowel or bladder control) 5. any other symptoms that concern you C. Please call the office at if you have any concerns or questions about your operation or recovery. D. No smoking! Smoking drastically decreases the chance of a solid fusion. E. Do not take any anti-inflammatory medications (Indocin, Advil, Motrin, Aspirin, Naprosyn, etc.) as these may inhibit the chance of a solid fusion. Tylenol is okay to take for pain. MANAGING PAIN AFTER SPINAL SURGERY 1. Narcotic medication is intended for short-term use and will be provided for surgical pain. Surgical pain usually lasts for a period of 4-6 weeks. Narcotic medication includes Percocet, Vicodin, Darvocet, Tylenol #3 or Lortab. 2. Longer-term pain is more appropriately treated with non-narcotic medication such as Tylenol ES. 3. Muscle spasm is not appropriately treated with narcotics. Muscle relaxers such as Soma, Flexeril or Skelaxin can be used along with Tylenol ES. 4. Remember that we all live with some "aches and pains". This is not unusual or uncommon after an injury or as we get older. a. Back pain is expected and may include muscle spasms for 4 to 6 weeks after surgery. The pain should gradually improve. If the pain worsens for no apparent reason, please contact the office. b. Intermittent leg pain may also be experienced and should not be concerned about unless it worsens for no apparent reason. If so, please contact the office. 5. We will provide appropriate medication within the normal guidelines of their prescribed use. We will also be very cautious and aware of potential abuse and extended duration of patients' medication needs. a. Pain medications are for your comfort and to assist with sleep and rest so that the tissue can heal. They are not provided in order to return to normal activity and should not be used through the day. To do so or worsening pain at night can result from ongoing tissue damage and developm ent of tolerance to the prescribed medicine. 6. Please allow 2-3 days to process refills. Prescriptions will not be mailed but must be picked up at the office. FOLLOW UP VISIT: Keep your scheduled follow-up appointment. Any questions, please call the office at . Prescriptions: New tramadol 50 mg Tablet 50 mg PO Q4H PRN (Reason: Pain, Moderate) Qty: 30 RF: 0 oxycodone 5 mg Tablet 5 mg PO Q4H PRN (Reason: Pain, Severe) Qty: 30 RF: 0 Continued levothyroxine 175 mcg Tablet 175 mcg PO QAM RF: 0 nifedipine 90 mg Tablet Extended Release 90 mg PO QAM RF: 0 aspirin [Aspir-81] 81 mg Tablet,Delayed Release (Dr/Ec) 81 mg PO QAM RF: 0 ranitidine HCl 150 mg Capsule 150 mg PO QAM RF: 0 hydrochlorothiazide 25 mg Tablet 25 mg PO QAM RF: 0 multivitamin Capsule 1 cap PO QAM RF: 0 lisinopril 2.5 mg Tablet 2.5 mg PO QAM RF: 0 omega 3-isn-udh-fish oil [Fish Oil] 1,000 mg (120 mg-180 mg) Capsule 1 cap PO QAM RF: 0 atorvastatin [Lipitor] 10 mg tablet 10 mg PO DAILY RF: 0 citalopram 10 mg tablet 10 mg PO DAILY RF: 0 Calcium 600 + D(3) 600 mg calcium- 200 unit Capsule 1 cap PO DAILY RF: 0 cyanocobalamin (vitamin B-12) 2,500 mcg Tablet 2,500 mcg PO SA RF: 0 Stand-Alone Forms: [facility] Discharge Orders: Discharge Order (Routine); Ordered 06/17/18 Ordered By: Jose Luis Tello Admission Data Admit Date/Time: 06/14/18 13:11 Attending Provider: Jose Luis Tello Admit Provider: Jose Luis Tello Primary Care Provider: Adolfo Tamez Other Providers: Gary Felipe Service: Surgical Services
== END 2018-06-17 11:45 | disposition home or self-care (01) | DRG 455 ==
LOC: ASU 08:52 → 3E 13:11